=== PATIENT | female | born 1965 | race Caucasian/White ===

== ENCOUNTER → 2018-09-01 | Emergency (ER) | payer OTHER ==
[~2018-09-01] VITALS: Ht 157.5 cm; Wt 54.4 kg
[~2018-09-01] MED LIST: METOPROLOL ER-1 EAC1
== END | disposition left against medical advice (07) ==
LOC: ER 05:06
DX: Z53.20 Procedure and treatment not carried out because of patient's decision for unspecified reasons (principal)

== ENCOUNTER → 2018-12-18 | Outpatient (CLI) | payer OTHER | END | disposition home or self-care (01) | LOC: MAMO-SONO 11:17 | DX: N64.4 Mastodynia (principal); N60.11 Diffuse cystic mastopathy of right breast; N63.10 Unspecified lump in the right breast, unspecified quadrant; N63.20 Unspecified lump in the left breast, unspecified quadrant; Z12.31 Encounter for screening mammogram for malignant neoplasm of breast ==

== ENCOUNTER → 2020-04-20 | Outpatient (CLI) | payer OTHER | END | disposition home or self-care (01) | LOC: MAMO-SONO 09:45 | PROVIDERS: ATTEND Internal Medicine Cardiovascular Disease | DX: Z12.31 Encounter for screening mammogram for malignant neoplasm of breast (principal); N63.11 Unspecified lump in the right breast, upper outer quadrant ==

== ENCOUNTER 2020-11-02 15:51 | Outpatient (CLI) | payer OTHER | END 2020-11-02 16:14 | disposition home or self-care (01) | LOC: SONOGRAMA 15:51 | PROVIDERS: ATTEND Obstetrics & Gynecology Maternal & Fetal Medicine | DX: N60.02 Solitary cyst of left breast (principal); N63.21 Unspecified lump in the left breast, upper outer quadrant; N64.59 Other signs and symptoms in breast ==

== ENCOUNTER 2021-06-27 10:33 | Outpatient (CLI) | payer OTHER | END 2021-06-27 10:46 | disposition home or self-care (01) | LOC: MAMO-SONO 10:33 | PROVIDERS: ATTEND Internal Medicine Cardiovascular Disease | DX: R92.1 Mammographic calcification found on diagnostic imaging of breast (principal); Z12.31 Encounter for screening mammogram for malignant neoplasm of breast; N60.12 Diffuse cystic mastopathy of left breast ==

== ENCOUNTER 2022-05-20 13:14 | Emergency (ER) | payer OTHER ==
[~2022-05-20] VITALS: Ht 157.5 cm; Wt 54.4 kg
== END 2022-05-20 17:24 | disposition home or self-care (01) ==
LOC: ER 13:14
DX: U07.1 COVID-19 (principal); I10 Essential (primary) hypertension

== ENCOUNTER → 2022-07-14 | Outpatient (CLI) | payer OTHER | END | disposition home or self-care (01) | LOC: MAMO-SONO 13:27 | PROVIDERS: ATTEND Internal Medicine Cardiovascular Disease | DX: N63.11 Unspecified lump in the right breast, upper outer quadrant (principal) ==

== ENCOUNTER 2023-08-10 14:45 | Outpatient (CLI) | payer OTHER | END 2023-08-10 14:56 | disposition home or self-care (01) | LOC: MAMO-SONO 14:45 | PROVIDERS: ATTEND Internal Medicine Cardiovascular Disease | DX: N64.4 Mastodynia (principal) ==

== ENCOUNTER 2024-08-28 07:43 | Outpatient (CLI) | payer OTHER | END 2024-08-28 07:47 | disposition home or self-care (01) | LOC: MAMO-SONO 07:43 | PROVIDERS: ATTEND Internal Medicine Cardiovascular Disease | DX: N60.11 Diffuse cystic mastopathy of right breast (principal); N60.12 Diffuse cystic mastopathy of left breast; Z12.31 Encounter for screening mammogram for malignant neoplasm of breast ==

== ENCOUNTER → 2025-04-07 09:37 | Outpatient (CLI) | payer OTHER ==
[2025-04-07 10:28] LABS: URINE APPEARANCE Clear; URINE BILIRRUBIN Negative (NEGATIVE); URINE BLOOD Small; URINE COLOR Yellow; URINE GLUCOSE Negative (NEGATIVE); URINE KETONE Negative (NEGATIVE); URINE LEUKOCYTE Negative; URINE NITRATE Negative; URINE PROTEIN Negative (NEGATIVE); URINE UROBILINOGEN 0.2 E.U./dl
[2025-04-07 10:29] LABS: BASO % 0.7 % (0.1-1.2); EOS # 0.07 (0.04-0.54); EOS % 1.3 % (0.7-7.0); LYMPH # 1.81 (1.18-3.74); LYMPH % 33.9 % (19.3-53.1); MEAN PLATELET VOLUME 10.00 fl (9.4-12.4); MONO # 0.23 (0.24-0.82); MONO % 4.3 % (4.7-12.5); NEUT # 3.17 (1.56-6.13); NEUT % 59.4 % (34.0-71.1); RED CELL DISTRIBUTION WIDTH 13.8 % (11.6-14.4)
[2025-04-07 10:33] LABS: URINE BACTERIA 183.4 uL (0.0-1933); URINE EPITHELIAL CELLS 10.7 uL (0.0-38.8); URINE RBC 29.4 uL (0.0-20.8); URINE WBC 3.9 uL (0.0-23.2)
[2025-04-07 11:16] LABS: URINE CAST 0.00 uL (0.0-1.40)
[2025-04-07 11:34] LABS: ALT/SGPT 72.0 U/L (12-78); AST/SGOT 35.0 U/L (15-37); BILIRUBIN TOTAL 0.44 mg/dL (0.3-1.2); BUN CREA RATIO 17.0 (7.0-25.0); CREATININE SERUM 0.9 mg/dL (0.55-1.02); GFR 63.87; GLOBULINA 4.1 G/DL (2.4-3.5); GLUCOSE FASTING 107.0 mg/dL (65-100); OSMOLALITY SERUM 284.0 MOSM/KG (275-295); TSH 0.8 uIU/mL (0.358-3.74)
[2025-04-07 11:49] LABS: INR 0.98
== END | disposition home or self-care (01) ==
LOC: LAB 09:37
PROVIDERS: ATTEND Legal Medicine
DX: D64.9 Anemia, unspecified (principal); N39.9 Disorder of urinary system, unspecified; D68.9 Coagulation defect, unspecified; I10 Essential (primary) hypertension; N91.2 Amenorrhea, unspecified; R05.9 Cough, unspecified

== ENCOUNTER 2025-04-27 10:50 | Outpatient (CLI) | payer OTHER ==
[2025-04-27 11:53] LABS: URINE APPEARANCE Clear; URINE BILIRRUBIN Negative (NEGATIVE); URINE BLOOD Trace; URINE COLOR Yellow; URINE GLUCOSE Negative (NEGATIVE); URINE KETONE Negative (NEGATIVE); URINE LEUKOCYTE Negative; URINE NITRATE Negative; URINE PROTEIN Negative (NEGATIVE); URINE UROBILINOGEN 0.2 E.U./dl
[2025-04-27 11:54] LABS: BASO % 0.4 % (0.1-1.2); EOS # 0.12 (0.04-0.54); EOS % 2.6 % (0.7-7.0); LYMPH # 1.58 (1.18-3.74); LYMPH % 34.0 % (19.3-53.1); MEAN PLATELET VOLUME 10.40 fl (9.4-12.4); MONO # 0.24 (0.24-0.82); MONO % 5.2 % (4.7-12.5); NEUT # 2.68 (1.56-6.13); NEUT % 57.6 % (34.0-71.1); RED CELL DISTRIBUTION WIDTH 14.1 % (11.6-14.4)
[2025-04-27 11:58] LABS: URINE BACTERIA 35.9 uL (0.0-1933); URINE EPITHELIAL CELLS 5.9 uL (0.0-38.8); URINE RBC 16.8 uL (0.0-20.8); URINE WBC 3.0 uL (0.0-23.2)
[2025-04-27 12:04] LABS: URINE CAST 0.00 uL (0.0-1.40)
[2025-04-27 12:27] LABS: INR 1.01
[2025-04-27 12:50] LABS: BUN CREA RATIO 15.0 (7.0-25.0); CREATININE SERUM 0.88 mg/dL (0.55-1.02); GFR 65.54; GLUCOSE FASTING 94.0 mg/dL (65-100); OSMOLALITY SERUM 285.0 MOSM/KG (275-295); T4 TOTAL 8.66 UG/DL (4.8-13.9); TSH 0.727 uIU/mL (0.358-3.74)
== END 2025-04-27 10:59 | disposition home or self-care (01) ==
LOC: LAB 10:50
PROVIDERS: ATTEND Internal Medicine Cardiovascular Disease
DX: I10 Essential (primary) hypertension (principal); E03.9 Hypothyroidism, unspecified; D68.9 Coagulation defect, unspecified